=== PATIENT | female | born 1975 ===

== ENCOUNTER 2023-04-24 06:20 | Day surgery (SDC) | payer BC, OTHER ==
[2023-04-24] MEDS: Dextrose 5%-0.45% NaCl 1,000 ML IV SCH (06:57)
[2023-04-24] MEDS ORDERED: fentaNYL 100 MCG/2 ML SDV IV ONE (06:58)
[2023-04-24] MEDS ORDERED: Midazolam 1 MG/ML 2 ML SDV IV ONE (06:58)
[2023-04-24] MEDS ORDERED: fentaNYL 100 MCG/2 ML SDV ONE (06:58)
[2023-04-24] MEDS ORDERED: Midazolam 1 MG/ML 2 ML SDV ONE (06:58)
[2023-04-24] MEDS: fentaNYL 100 MCG/2 ML SDV IV ONE ×3 (07:47→07:58)
[2023-04-24] MEDS: Midazolam 1 MG/ML 2 ML SDV IV ONE ×6 (07:50→07:55)
[2023-04-28] MEDS ORDERED: Sodium Chloride 0.9% 10 ML Syringe FLUSH PRN (06:30)
[2023-04-28] MEDS ORDERED: Dextrose 5%-0.45% NaCl 1,000 ML IV SCH (06:30)
== END 2023-04-24 09:15 | disposition home or self-care (01) ==
LOC: DL.ENDO 06:20
PROVIDERS: ATTEND Internal Medicine Gastroenterology
DX: Z12.11 Encounter for screening for malignant neoplasm of colon (principal); I10 Essential (primary) hypertension; R73.9 Hyperglycemia, unspecified; E66.09 Other obesity due to excess calories; Z86.010 Personal history of colon polyps; Z68.41 Body mass index [BMI] 40.0-44.9, adult
CPT/HCPCS: J2250; J3010; J7042